=== PATIENT | male | born 1960 | race Caucasian/White ===

== ENCOUNTER → 2023-04-13 | Outpatient (CLI) | payer BC ==
[2023-04-13 20:05] LABS: % Iron Saturation 71.91 (15.00-50.00); Iron 192 UG/DL (65-175); Total Iron Binding Capacity 267 UG/DL (228-460)
[2023-04-13 20:27] LABS: ALT 139 U/L (10-49); AST 114 U/L (14-35); Albumin 3.6 d/dL (3.8-4.9); Albumin/Globulin Ratio 0.82 Ratio (1.60-3.17); Alkaline Phosphatase 270 U/L (41-126); BUN/Creat Ratio 10.57 Ratio (12.00-20.00); Blood Urea Nitrogen 7.4 mg/dL (9.0-27.0); Calcium 10.1 mg/dL (8.7-10.3); Carbon Dioxide 28.6 mmol/L (21.6-31.8); Chloride 102 mmol/L (96-109); Globulin 4.4 d/dL (1.6-3.3); Glucose 374 mg/dL (70-110); Potassium 4.6 mmol/L (3.5-5.5); Sodium 139 mmol/L (135-145); Total Bilirubin 2.5 mg/dL (0.3-1.2)
[2023-04-13 21:48] LABS: Ceruloplasmin 27.8 mg/dL (20.0-60.0)
[2023-04-13 22:18] LABS: Basophils # (A) 0.05 X 10*3/uL (0.00-0.10); Basophils % (A) 1.1 %; Eosinophils # (A) 0.13 X 10*3/uL (0.04-0.35); Eosinophils % (A) 2.9 %; HCT 42.6 % (39.6-50.0); HGB 14.5 d/dL (13.0-17.0); Lymphocytes # (A) 0.75 X 10*3/uL (0.90-5.00); Lymphocytes % (A) 16.6 %; MCH 35.9 pg (27.0-32.0); MCV 105.4 FL (80.0-97.0); Mean Platelet Volume 11.3 FL (9.5-12.2); Monocytes # (A) 0.54 X 10*3/uL (0.20-1.00); NRBC Per 100 WBC 0 X 10*3/uL (0.00-0.01); Neutrophils # (A) 3.03 X 10*3/uL (1.80-7.70); Neutrophils % (A) 67.2 %; Platelet Count 140 X 10*3/uL (140-440); RBC 4.04 X 10*6/uL (4.40-5.60); RBC Morphology Normal (Normal); RDW 14.9 % (11.5-14.5); WBC 4.51 X 10*3/uL (4.50-10.00)
[2023-04-14 08:36] LABS: Albumin 3.4 d/dL (3.8-4.9); Protein, Total 7.8 d/dL (6.2-8.2)
[2023-04-14 17:40] LABS: Gamma Globulin 2.68 d/dL (0.70-1.50)
== END | disposition home or self-care (01) ==
LOC: LABWHC1 16:15
PROVIDERS: ATTEND Internal Medicine Gastroenterology
DX: R74.01 Elevation of levels of liver transaminase levels (principal)
CPT/HCPCS: 36415; 80053; 82103; 82105; 82390; 82728; 83516; 83540; 83550; 84165; 85025; 86038

== ENCOUNTER 2023-05-04 09:14 | Emergency (ER) | payer BC ==
[2023-05-04 09:20] VITALS: BP 148/81; PULSE 104; RESP 20; TEMP 98.2
--- NOTE | 2023-05-04 10:19 | ED ---
General Adult HPI - General Chief complaint: Recheck/Abnormal Lab/Rx Stated complaint: burning and itching Time Seen by Provider: 05/04/23 09:38 Source: patient Mode of arrival: ambulatory Limitations: no limitations - History of Present Illness Initial comments: Dictation was produced using [employer] dictation software. please excuse any grammatical, word or spelling errors. Chief Complaint: 62-year-old male with intractable skin itching and burning History of Present Illness: Patient 62-year-old male he has had more than half a year of intractable skin itching and burning states that his symptoms aren't bearable. 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 He is undergoing workup for possible GI cause of pruritus. He's been taking outpatient Atarax and cholestyramine with no improvement of his symptoms. Patient is waiting on results from his abdominal MRI. The ROS documented in this emergency department record has been reviewed and confirmed by me. Those systems with pertinent positive or negative responses have been documented in the HPI. All other systems are other negative and/or noncontributory. - Related Data Previous Rx's Medication Instructions Recorded ALPRAZolam [Xanax] 0.5 mg PO HS PRN 3 Days #3 tab 05/04/23 Allergies Allergy/AdvReac Type Severity Reaction Status Date / Time No Known Allergies Allergy Verified 05/04/23 09:19 Review of Systems ROS Statement: Those systems with pertinent positive or pertinent negative responses have been documented in the HPI. ROS Other: All systems not noted in ROS Statement are negative. Past Medical History Past Medical History: No Reported History History of Any Multi-Drug Resistant Organisms: None Reported Past Surgical History: No Surgical Hx Reported Past Psychological History: No Psychological Hx Reported Smoking Status: Current every day smoker Past Alcohol Use History: Occasional Past Drug Use History: None Reported General Exam - General Exam Comments Initial Comments: PHYSICAL EXAM: General Impression: Alert and oriented x3, not in acute distress HEENT: Normocephalic atraumatic, extra-ocular movements intact, pupils equal and reactive to light bilaterally, mucous membranes moist. Cardiovascular: Heart regular rate and rhythm Chest: Able to complete full sentences, no retractions, no tachypnea Abdomen: abdomen soft, non-tender, non-distended, no organomegaly Musculoskeletal: Pulses present and equal in all extremities, no peripheral edema Motor: no focal deficits noted Neurological: CN II-XII grossly intact, no focal motor or sensory deficits noted Skin: Intact with no visualized rashes Psych: Normal affect and mood Limitations: no limitations Course Vital Signs 05/04/23 09:17 Temperature 98.2 F Pulse Rate 104 H Respiratory 20 Rate Blood Pressure 148/81 O2 Sat by Pulse 99 Oximetry Medical Decision Making - Medical Decision Making Was pt. sent in by a medical professional or institution (, JENNIFER, PLUMBER'S HELPER, urgent care, hospital, or assisted...) When possible be specific @ -No Did you speak to anyone other than the patient for history (EMS, parent, family, police, friend...)? What history was obtained from this source @ -No Did you review nursing and triage notes (agree or disagree)? Why? @ -I reviewed and agree with nursing and triage notes Were old charts reviewed (outside hosp., previous admission, EMS record, old EKG, old radiological studies, urgent care reports/EKG's, assisted records)? Report findings @ -No old charts were reviewed Differential Diagnosis (chest pain, altered mental status, abdominal pain women, abdominal pain men, vaginal bleeding, musculoskeletal, weakness, fever, dyspnea, syncope, headache, dizziness, GI bleed, back pain, seizure, CVA, palpatations, mental health)? @ -not applicable EKG interpreted by me (3pts min.). @ -None done X-rays interpreted by me (1pt min.). @ -None done CT interpreted by me (1pt min.). @ -None done U/S interpreted by me (1pt. min.). @ -None done What testing was considered but not performed or refused? (CT, X-rays, U/S, labs)? Why? @ -None What meds were considered but not given or refused? Why? @ -None Did you discuss the management of the patient with other professionals (professionals i.e. JENNIFER Banegas, PLUMBER'S HELPER, lab, RT, psych nurse, health and social care teacher, network technician, teacher, facilities officer, manager case)? Give summary @ -No Was smoking cessation discussed for >3mins.? @ -No Was critical care preformed (if so, how long)? @ -No Were there social determinants of health that impacted care today? How? (Homelessness, low income, unemployed, alcoholism, drug addiction, transportation, low edu. Level, literacy, decrease access to med. care, snf, rehab)? @ -No Was there de-escalation of care discussed even if they declined (Discuss DNR or withdrawal of care, Hospice)? DNR status @ -No What co-morbidities impacted this encounter? (DM, HTN, Smoking, COPD, CAD, Cancer, CVA, ARF, Chemo, Hep., AIDS, mental health diagnosis, sleep apnea, morbid obesity)? @ -None Was patient admitted / discharged? Hospital course, mention meds given and route, prescriptions, significant lab abnormalities, going to OR and other pertinent info. @ -62-year-old male with intractable itching. Vital signs stable. Patient well-appearing. Symptoms are chronic. Patient given IM Valium. Reevaluated at bedside stable medical condition. Strongly advised to follow-up with his primary care doctor and/or upholstery parts sorter for outpatient management of his intractable pruritus. Undiagnosed new problem with uncertain prognosis? @ -No Drug Therapy requiring intensive monitoring for toxicity (Heparin, Nitro, Insulin, Cardizem)? @ -No Were any procedures done? @ -No Diagnosis/symptom? Acute, or Chronic, or Acute on Chronic? Uncomplicated (without systemic symptoms) or Complicated (systemic symptoms)? @ -Intractable pruritus Side effects of treatment? @ -No Exacerbation, Progression, or Severe Exacerbation? @ -No Poses a threat to life or bodily function? How? (Chest pain, [place], [place], pneumonia, PE, COPD, DKA, ARF, appy, cholecystitis, CVA, Diverticulitis, Homicidal, Suicidal, threat to staff... and all critical care pts) @ -No Disposition Clinical Impression: Pruritus Disposition: HOME SELF-CARE Condition: Good Instructions (If sedation given, give patient instructions): Alprazolam (By mouth) Prescriptions: ALPRAZolam [Xanax] 0.5 mg PO HS PRN 3 Days #3 tab PRN Reason: Insomnia Is patient prescribed a controlled substance at d/c from ED?: Yes If prescribed controlled substance>3 days was MAPS reviewed?: Prescribed <3 Days Referrals: Krishna Stearns DO [Primary Care Provider] - 1-2 days Time of Disposition: 11:12
== END 2023-05-04 11:33 | disposition home or self-care (01) ==
LOC: EC 09:14
DX: L29.9 Pruritus, unspecified (principal); F17.200 Nicotine dependence, unspecified, uncomplicated
CPT/HCPCS: 99282; 96372; J3360

== ENCOUNTER 2023-05-18 16:52 | Emergency (ER) | payer BC ==
--- NOTE | 2023-05-18 19:41 | ED ---
Weakness HPI - General Chief complaint: Weakness Stated complaint: abd pain/swelling in legs Time Seen by Provider: 05/18/23 17:30 Source: patient Mode of arrival: wheelchair - History of Present Illness Initial comments: 63-year-old male with history of alcohol abuse who presents to the emergency department reporting diffuse pruritus. is at bedside and helps provide the history. The patient has developed significant pruritus over the past 2 months. He is under the care of Dr. Canchola. 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 He was following with the GI specialist Dr. Canchola who has him on cholestyramine for the itch. She was referring him down to [facility] to see a primary care provider. Patient states he has an appointment with Dr. Martinez on June 01. He continues to have the itching which keeps him up all night. states that he has been more confused and weak with difficulty ambulating. He has had worsening lower extremity swelling. She is concerned for the patient's well being and does not believe that he will last until June 01 when they have their appointment. They called and spoke with Dr. Canchola's office and they recommended that the patient be seen in the emergency department for evaluation. He denies any fevers. No chest pain or shortness of breath. Admits to intermittent bright red stools. No other a lleviating, precipitating or modifying factors - Related Data Home Medications Medication Instructions Recorded Confirmed Cholestyramine/Aspartame 4 gm PO BID-W/MEALS 05/18/23 05/18/23 [Cholestyramine Light Powder] diazePAM [Valium] 5 mg PO HS 05/18/23 05/18/23 hydrOXYzine HCL [Atarax] 50 mg PO TID-W/MEALS 05/18/23 05/18/23 Allergies Allergy/AdvReac Type Severity Reaction Status Date / Time No Known Allergies Allergy Verified 05/18/23 23:17 Review of Systems ROS Statement: Those systems with pertinent positive or pertinent negative responses have been documented in the HPI. ROS Other: All systems not noted in ROS Statement are negative. Past Medical History Past Medical History: No Reported History History of Any Multi-Drug Resistant Organisms: None Reported Past Surgical History: No Surgical Hx Reported, Orthopedic Surgery Additional Past Surgical History / Comment(s): knee, elbow Past Psychological History: No Psychological Hx Reported Smoking Status: Current every day smoker Past Alcohol Use History: Occasional Past Drug Use History: None Reported General Exam General appearance: alert, in no apparent distress Head exam: Present: atraumatic, normocephalic, normal inspection Eye exam: Present: normal appearance, PERRL, EOMI. Absent: scleral icterus, conjunctival injection, periorbital swelling ENT exam: Present: normal exam, mucous membranes moist Neck exam: Present: normal inspection. Absent: tenderness, meningismus, lymphadenopathy Respiratory exam: Present: normal lung sounds bilaterally. Absent: respiratory distress, wheezes, rales, rhonchi, stridor Cardiovascular Exam: Present: regular rate, normal rhythm, normal heart sounds. Absent: systolic murmur, diastolic murmur, rubs, gallop, clicks GI/Abdominal exam: Present: soft, normal bowel sounds. Absent: distended, tenderness, guarding, rebound, rigid Extremities exam: Present: normal inspection, full ROM, normal capillary refill, pedal edema (2+). Absent: tenderness, joint swelling, calf tenderness Back exam: Present: normal inspection Neurological exam: Present: alert, oriented X3, CN II-XII intact Psychiatric exam: Present: normal affect, normal mood Skin exam: Present: warm, dry, intact, normal color. Absent: rash Course Vital Signs 05/18/23 05/18/23 05/18/23 17:26 21:06 22:00 Temperature 98.2 F Pulse Rate 89 87 90 Respiratory 18 16 16 Rate Blood Pressure 107/66 144/79 144/79 O2 Sat by Pulse 96 Oximetry 05/18/23 23:00 Temperature 98.8 F Pulse Rate 82 Respiratory 16 Rate Blood Pressure 148/85 O2 Sat by Pulse Oximetry Medical Decision Making - Medical Decision Making Was pt. sent in by a medical professional or institution (, PA, SIMULATION ENGINEER, urgent care, hospital, or correction...) When possible be specific @ -Patient was sent in from the GI office Did you speak to anyone other than the patient for history (EMS, parent, family, police, friend...)? What history was obtained from this source @ -I spoke with the in regards to the history Did you review nursing and triage notes (agree or disagree)? Why? @ -I reviewed and agree with nursing and triage notes Were old charts reviewed (outside hosp., previous admission, EMS record, old EKG, old radiological studies, urgent care reports/EKG's, correction records)? Report findings @ -I reviewed the patient's abdominal MRI from May 11 Differential Diagnosis (chest pain, altered mental status, abdominal pain women, abdominal pain men, vaginal bleeding, weakness, fever, dyspnea, syncope, headache, dizziness, GI bleed, back pain, seizure, CVA, palpatations, mental health, musculoskeletal)? @ -Cholestasis, heart failure, liver failure, hyperammonemia EKG interpreted by me (3pts min.). @ -Yes and demonstrates normal sinus rhythm with a rate of 78. KS interval 132. QRS 91. QTC of 425. No acute ST segment elevations or depressions X-rays interpreted by me (1pt min.). @ -None done CT interpreted by me (1pt min.). @ -CT of the brain demonstrates no acute intracranial process U/S interpreted by me (1pt. min.). @ -None done What testing was considered but not performed or refused? (CT, X-rays, U/S, labs)? Why? @ -CT of the abdomen was considered however the patient just had a abdominal MRI on the What meds were considered but not given or refused? Why? @ -None Did you discuss the management of the patient with other professionals (professionals i.e. , PA, SIMULATION ENGINEER, lab, RT, psych nurse, executive secretary social welfare, transport truck driver, teacher, surveillance dual rate officer, home health care case manager)? Give summary @ -I spoke with Dr. Hurtado. She does not feel that the patient would benefit from admission at our hospital. Feels as if the patient should be transferred and therefore requesting that I call Bryon Bradford. Was smoking cessation discussed for >3mins.? @ -No Was critical care preformed (if so, how long)? @ -No Were there social determinants of health that impacted care today? How? (Homelessness, low income, unemployed, alcoholism, drug addiction, transportation, low edu. Level, literacy, decrease access to med. care, custodial, rehab)? @ -No Was there de-escalation of care discussed even if they declined (Discuss DNR or withdrawal of care, Hospice)? DNR status @ -No What co-morbidities impacted this encounter? (DM, HTN, Smoking, COPD, CAD, Cancer, CVA, ARF, Chemo, Hep., AIDS, mental health diagnosis, sleep apnea, morbid obesity)? @ -Alcohol abuse Was patient admitted / discharged? Hospital course, mention meds given and route, prescriptions, significant lab abnormalities, going to OR and other pertinent info. @ -Upon arrival patient was placed into room 5. A thorough history and physical exam was performed. states that the patient has been more confused and therefore an IV is established. Laboratories is were conducted and patient does go for CT of his head. I did review his MRI results of his abdomen. Patient was given 5 mg of Valium for his itching as well as 25 mg of Benadryl. I called and discussed the case with Dr. Canchola. Does not want to admit the patient and she does not feel that she would be able to manage the patient any further. States that the patient needs to see a primary care provider. She does recommend that I transfer the patient to [facility]. I did call and speak with Dr. Paiz does accept transfer the patient. She states that the patient may receive a bed in 24-48 hours. Patient is notified of the extremely long wait for transfer. He is aware of this and is willing to wait as he states he cannot tolerate his symptoms any longer. COBRA forms are signed and the patient is awaiting a bed at [facility] in stable condition Undiagnosed new problem with uncertain prognosis? @ -yes Drug Therapy requiring intensive monitoring for toxicity (Heparin, Nitro, Insulin, Cardizem)? @ -No Were any procedures done? @ -No Diagnosis/symptom? @ -Acute pruritus, liver cirrhosis, liver mass, EtOH abuse, encephalopathy Acute, or Chronic, or Acute on Chronic? @ -Acute on chronic Uncomplicated (without systemic symptoms) or Complicated (systemic symptoms)? @ -Complicated Side effects of treatment? @ -No Exacerbation, Progression, or Severe Exacerbation? @ -No Poses a threat to life or bodily function? How? (Chest pain, [place], [place], pneumonia, PE, COPD, DKA, ARF, appy, cholecystitis, CVA, Diverticulitis, Homicidal, Suicidal, threat to staff... and all critical care pts) @ -No - Lab Data Result diagrams: 05/18/23 19:46 05/18/23 19:46 Lab Results 09/05/18/23 05/18/23 Range/Units 19:34 19:46 19:46 WBC 4.7 (3.8-10.6) k/uL RBC 3.66 L (4.30-5.90) m/uL Hgb 13.0 (13.0-17.5) gm/dL Hct 39.3 (39.0-53.0) % MCV 107.5 H (80.0-100.0) fL MCH 35.4 H (25.0-35.0) pg MCHC 33.0 (31.0-37.0) g/dL RDW 14.4 (11.5-15.5) % Plt Count 126 L (150-450) k/uL MPV 8.4 Neutrophils % 69 % Lymphocytes % 17 % Monocytes % 8 % Eosinophils % 3 % Basophils % 1 % Neutrophils # 3.3 (1.3-7.7) k/uL Lymphocytes # 0.8 L (1.0-4.8) k/uL Monocytes # 0.4 (0-1.0) k/uL Eosinophils # 0.2 (0-0.7) k/uL Basophils # 0.0 (0-0.2) k/uL Macrocytosis Moderate PT (9.0-12.0) sec INR (<1.2) APTT (22.0-30.0) sec Sodium 139 (137-145) mmol/L Potassium 4.2 (3.5-5.1) mmol/L Chloride 109 H (98-107) mmol/L Carbon Dioxide 26 (22-30) mmol/L Anion Gap 4 mmol/L BUN 7 L (9-20) mg/dL Creatinine 0.47 L (0.66-1.25) mg/dL Est GFR (CKD-EPI)AfAm >90 (>60 ml/min/1.73 sqM) Est GFR (CKD-EPI)NonAf >90 (>60 ml/min/1.73 sqM) Glucose 195 H (74-99) mg/dL Plasma Lactic Acid Junior 1.1 (0.7-2.0) mmol/L Calcium 9.0 (8.4-10.2) mg/dL Total Bilirubin 2.6 H (0.2-1.3) mg/dL Conjugated Bilirubin 0.0 (0.0-0.3) mg/dL Unconjugated Bilirubin 1.7 H (0.0-1.1) mg/dL Delta Bilirubin 0.9 H (0.0-0.2) mg/dL AST 110 H (17-59) U/L ALT 123 H (4-49) U/L Alkaline Phosphatase 254 H (38-126) U/L Ammonia 38 H (<30) umol/L NT-Pro-B Natriuret Pep 28 pg/mL Total Protein 7.4 (6.3-8.2) g/dL Albumin 3.0 L (3.5-5.0) g/dL Lipase 259 (23-300) U/L Urine Color Urine Appearance (Clear) Urine pH (5.0-8.0) Ur Specific Gardner (1.001-1.035) Urine Protein (Negative) Urine Glucose (UA) (Negative) Urine Ketones (Negative) Urine Blood (Negative) Urine Nitrite (Negative) Urine Bilirubin (Negative) Urine Urobilinogen (<2.0) mg/dL Ur Leukocyte Esterase (Negative) Coronavirus (PCR) (Not Detectd) 05/18/23 05/18/23 05/18/23 Range/Units 19:46 21:49 22:47 WBC (3.8-10.6) k/uL RBC (4.30-5.90) m/uL Hgb (13.0-17.5) gm/dL Hct (39.0-53.0) % MCV (80.0-100.0) fL MCH (25.0-35.0) pg MCHC (31.0-37.0) g/dL RDW (11.5-15.5) % Plt Count (150-450) k/uL MPV Neutrophils % % Lymphocytes % % Monocytes % % Eosinophils % % Basophils % % Neutrophils # (1.3-7.7) k/uL Lymphocytes # (1.0-4.8) k/uL Monocytes # (0-1.0) k/uL Eosinophils # (0-0.7) k/uL Basophils # (0-0.2) k/uL Macrocytosis PT 12.9 H (9.0-12.0) sec INR 1.3 H (<1.2) APTT 28.5 (22.0-30.0) sec Sodium (137-145) mmol/L Potassium (3.5-5.1) mmol/L Chloride (98-107) mmol/L Carbon Dioxide (22-30) mmol/L Anion Gap mmol/L BUN (9-20) mg/dL Creatinine (0.66-1.25) mg/dL Est GFR (CKD-EPI)AfAm (>60 ml/min/1.73 sqM) Est GFR (CKD-EPI)NonAf (>60 ml/min/1.73 sqM) Glucose (74-99) mg/dL Plasma Lactic Acid Junior (0.7-2.0) mmol/L Calcium (8.4-10.2) mg/dL Total Bilirubin (0.2-1.3) mg/dL Conjugated Bilirubin (0.0-0.3) mg/dL Unconjugated Bilirubin (0.0-1.1) mg/dL Delta Bilirubin (0.0-0.2) mg/dL AST (17-59) U/L ALT (4-49) U/L Alkaline Phosphatase (38-126) U/L Ammonia (<30) umol/L NT-Pro-B Natriuret Pep pg/mL Total Protein (6.3-8.2) g/dL Albumin (3.5-5.0) g/dL Lipase (23-300) U/L Urine Color Yellow Urine Appearance Clear (Clear) Urine pH 5.0 (5.0-8.0) Ur Specific Gardner 1.026 (1.001-1.035) Urine Protein Negative (Negative) Urine Glucose (UA) 4+ H (Negative) Urine Ketones Negative (Negative) Urine Blood Negative (Negative) Urine Nitrite Negative (Negative) Urine Bilirubin Negative (Negative) Urine Urobilinogen <2.0 (<2.0) mg/dL Ur Leukocyte Esterase Negative (Negative) Coronavirus (PCR) Not Detected (Not Detectd) Disposition Clinical Impression: Pruritus, Liver cirrhosis Disposition: OTHER INSTITUTION NOT DEFINED Condition: Serious Is patient prescribed a controlled substance at d/c from ED?: No Referrals: Krishna Stearns DO [Primary Care Provider] - 1-2 days Time of Disposition: 00:32 - Out of Hospital Transfer - Req. Specs Out of Hospital Transfer - Requested Specifics: Other Non-Acute ([facility])
[2023-05-18 19:58] LABS: Basophils % (A) 1 %; Eosinophils # (A) 0.2 k/uL (0-0.7); Eosinophils % (A) 3 %; HCT 39.3 % (39.0-53.0); Lymphocytes # (A) 0.8 k/uL (1.0-4.8); Lymphocytes % (A) 17 %; MCH 35.4 pg (25.0-35.0); MCV 107.5 fL (80.0-100.0); Macrocytosis Moderate; Mean Platelet Volume 8.4; Monocytes # (A) 0.4 k/uL (0-1.0); Monocytes % (A) 8 %; Neutrophils # (A) 3.3 k/uL (1.3-7.7); Neutrophils % (A) 69 %; Platelet Count 126 k/uL (150-450); RBC 3.66 m/uL (4.30-5.90); RDW 14.4 % (11.5-15.5); WBC 4.7 k/uL (3.8-10.6)
[2023-05-18 20:12] LABS: INR 1.3 (<1.2); Partial Thromboplastin Time 28.5 sec (22.0-30.0); Prothrombin Time 12.9 sec (9.0-12.0)
[2023-05-18 20:16] LABS: Lactic Acid, Venous 1.1 mmol/L (0.7-2.0)
[2023-05-18 20:16] LABS: ALT 123 U/L (4-49); AST 110 U/L (17-59); African American GFR (CKD) >90 (>60 ml/min/1.73 sqM); Alkaline Phosphatase 254 U/L (38-126); Anion Gap 4 mmol/L; Bilirubin, Delta 0.9 mg/dL (0.0-0.2); Bilirubin,Unconjugated 1.7 mg/dL (0.0-1.1); Blood Urea Nitrogen 7 mg/dL (9-20); Carbon Dioxide 26 mmol/L (22-30); Chloride 109 mmol/L (98-107); Glucose 195 mg/dL (74-99); Lipase 259 U/L (23-300); Non-African American GFR(CKD) >90 (>60 ml/min/1.73 sqM); Potassium 4.2 mmol/L (3.5-5.1); Sodium 139 mmol/L (137-145); Total Bilirubin 2.6 mg/dL (0.2-1.3); Total Protein 7.4 g/dL (6.3-8.2)
[2023-05-18 20:25] LABS: NT-Pro-B-Type Natriuretic Pept 28 pg/mL
--- NOTE | 2023-05-18 20:52 | CT ---
EXAMINATION TYPE: CT brain wo con DATE OF EXAM: 05/18/2023 COMPARISON: None INDICATION: weakness DLP: 1244.2 mGycm, Automated exposure control for dose reduction was used. CONTRAST: None CT of the brain is performed utilizing 3 mm thick sections through the posterior fossa and 3 mm thick sections through the remaining calvarium. Study is performed within 24 hours of arrival to the hosp ital. No abnormal hyperdensity is present to suggest an acute intracranial hemorrhage. No mass lesion is evident. No acute infarcts are evident. Ventricles and sulci are mildly prominent for the patient age. Paranasal sinuses and mastoid air cells within the [id number] are clear. IMPRESSION: 1. No acute intracranial process. Some mild atrophy may be present. Follow-up MRI can be performed as clinically indicated.
[2023-05-18 23:07] LABS: Appearance,Urine Clear (Clear); Bilirubin,Urine Negative (Negative); Blood,Urine Negative (Negative); Color,Urine Yellow; Glucose,Urine (UA) 4+ (Negative); Ketones,Urine Negative (Negative); Leukocyte Esterase,Urine Negative (Negative); Nitrite,Urine Negative (Negative); Protein,Urine Negative (Negative); Specific Gravity,Urine 1.026 (1.001-1.035); Urobilinogen,Urine <2.0 mg/dL (<2.0)
[2023-05-18] MEDS ORDERED: diphenhydrAMINE 50 MG/ML 1 ML VIAL IVP STA (23:27)
[2023-05-19 04:42] VITALS: BP 141/101; PULSE 94; RESP 18; TEMP 98.6
[2023-05-19] MEDS ORDERED: hydrOXYzine HCL 25 MG TAB PO SCH (07:30)
[2023-05-19] MEDS ORDERED: [UNRECOGNIZED DRUG - OTHER] PO SCH (07:30)
[2023-05-19] MEDS ORDERED: diazePAM 5 MG TAB PO SCH (21:00)
== END 2023-05-19 06:00 | disposition other institution (70) ==
LOC: EC 16:52
DX: L29.9 Pruritus, unspecified (principal); K74.60 Unspecified cirrhosis of liver; F17.200 Nicotine dependence, unspecified, uncomplicated; Z20.822 Contact with and (suspected) exposure to COVID-19
CPT/HCPCS: 36415; 93005; 83880; 80053; 82140; 82248; 83605; 83690; 85025; 85610; 85730; 81003; 87635; 70450; 99285; 96374; 96375; J1200; J3360